=== PATIENT | male | born 1960 | race Caucasian/White ===

== ENCOUNTER 2019-06-08 15:24 | Outpatient (RCR) | payer BC, OTHER ==
[~2019-06-08 15:24] MED LIST: ANTIBIOTIC PO; LISINOPRIL; TYLENOL PO
== END 2019-06-14 ==
LOC: OT 15:24
PROVIDERS: ATTEND Orthopaedic Surgery
DX: S46.011A Strain of muscle(s) and tendon(s) of the rotator cuff of right shoulder, initial encounter (principal)

== ENCOUNTER 2019-07-04 21:11 | Emergency (ER) | payer BC, OTHER ==
[~2019-07-04] VITALS: Ht 185.4 cm; Wt 88.5 kg
--- OUTSIDE RECORDS SUMMARY | 2019-07-04 21:15 | XMS REPORT ---
Author Author [facility] Address Unknown Phone Unavailable Care Team Providers Care Patrol Guard Name Role Phone OZZY MORENO Unavailable Unavailable ALEXUS, WILL Unavailable Unavailable ROYA RODRIGUEZ Unavailable Unavailable SHAUNA JAMES Unavailable Unavailable Payers Payer Name Policy Type Policy Number Effective Date Expiration Date Problems This patient has no known problems. Allergies, Adverse Reactions, Alerts Allergy Name Allergy Type Status Severity Reaction(s) Onset Date Inactive Date Treating Clinician Comments jacqui DA Active CT 2015-04-22 00:00:00 Medications This patient has no known medications. Results Test Description Test Time Test Comments Text Results Atomic Results Result Comments HEMOGLOBIN 2019-05-27 08:39:00 HEMOGLOBIN (BEAKER) (test eedm=966) 14.6 GM/DL 13.7-17.5 BASIC METABOLIC [id number] 08:39:00* Test Item Value Reference Range Comments SODIUM (BEAKER) (test gkzk=151) 141 meq/L 136-145 POTASSIUM (BEAKER) (test ttyf=357) 4.1 meq/L 3.5-5.1 CHLORIDE (BEAKER) (test beek=688) 106 meq/L 98-107 CO2 (BEAKER) (test pfqd=470) 30 meq/L 22-29 BLOOD UREA NITROGEN (BEAKER) (test mahu=598) 21 mg/dL 7-21 CREATININE (BEAKER) (test srsw=988) 0.74 mg/dL 0.57-1.25 GLUCOSE RANDOM (BEAKER) (test krdi=708) 96 mg/dL 70-105 CALCIUM (BEAKER) (test ulds=398) 8.7 mg/dL 8.4-10.2 EGFR (BEAKER) (test glzo=1395) 108 mL/min/1.73 sq m ESTIMATED GFR IS NOT ACCURATE CREATININE CLEARANCE IN PREDICTING GLOMERULAR FILTRATION RATE. ESTIMATED GFR IS NOT APPLICABLE FOR DIALYSIS PATIENTS. CT, [id number] 23:56:00Reason for exam:->ABDOMINAL PAINWhat is the patient's sedation requirement?->No SedationFINAL REPORT CT abdomen and pelvis, 03/26/2019 TECHNIQUE: Helical scanning of the abdomen and pelvis was performed following intravenous contrast only. This examination was performed according to departmental dose optimization protocol that includes automatic exposure control, adjustment of the MA and/or KV depending on patient size and/or iterative reconstruction technique. COMPARISON: 10/19/2018 The lung bases remain clear. No pleural or pericardial effusions are identified. The liver, spleen, pancreas and adrenals appear normal. There is a stable 12 mm cyst in the lower pole of the left kidney and an 8 mm stable probable cyst in the right kidney.There is no significant distention gastrointestinal tract. The retroperitoneal lymph nodes noted on the previous study are unchanged and not enlarged by size criteria. Abdominal aorta is not enlarged. There is a lucent approximately 10 mm lesion right iliac bone near the SI joint remains unchanged. This is nonspecific and could be of normal. There are a few scattered areas of increased bony sclerosis in the lumbar spine as well as in the iliac bones that are likely degenerative and/or bone islands. These lesions are unchanged from the prior study. New lesions are seen. Degenerative changes are noted in the lumbar spine at multiple levels. CONCLUSION: Signed: Lela James MDRepthe rehabilitation institute Verified Date/Time: 03/26/2019 23:56:37 Reading Location: [facility] [id number] Consult Reading Room /[id number] 23:24:00* Test Item Value Reference Range Comments PROTIME (BEAKER) (test iwhh=475) 11.4 sec 9.3-12.0 INR (BEAKER) (test jnyw=580) 1.1 <=5.9 PARTIAL THROMBOPLASTIN TIME (BEAKER) (test gifs=402) 28.6 sec 23.0-35.0 RECOMMENDED COUMADIN/WARFARIN INR THERAPY RANGESSTANDARD DOSE: 2.0 - 3.0 Inclu halle: PROPHYLAXIS for venous thrombosis, systemic embolization; TREATMENT for callum ous thrombosis and/or pulmonary embolus.HIGH RISK: Target INR is 2.5-3.5 for pat ients with mechanical heart valves.Final Information (Auto Output)Final Informat ion (Auto Output)Final Information (Auto Output)COMPREHENSIVE METABOLIC PANEL 2019-03-26 23:09:00* Test Item Value Reference Range Comments TOTAL PROTEIN (BEAKER) (test yxcg=086) 7.2 gm/dL 6.0-8.5 ALBUMIN (BEAKER) (test zyhb=4573) 4.2 g/dL 3.5-5.0 ALKALINE PHOSPHATASE (BEAKER) (test tnzj=496) 81 U/L 30-115 BILIRUBIN TOTAL (BEAKER) (test yqsi=904) 0.5 mg/dL 0.1-1.2 SODIUM (BEAKER) (test swtk=626) 138 meq/L 135-148 POTASSIUM (BEAKER) (test hous=475) 3.9 meq/L 3.6-5.5 CHLORIDE (BEAKER) (test uxuo=165) 99 meq/L 98-106 CO2 (BEAKER) (test nhgd=177) 28 meq/L 20-29 BLOOD UREA NITROGEN (BEAKER) (test hupc=668) 47 mg/dL 10-26 CREATININE (BEAKER) (test ogoc=667) 1.14 mg/dL 0.50-1.20 GLUCOSE RANDOM (BEAKER) (test cxuz=939) 106 mg/dL 70-110 CALCIUM (BEAKER) (test opuq=453) 9.5 mg/dL 8.5-10.5 AST (SGOT) (BEAKER) (test iyfm=213) 33 U/L 5-40 ALT (SGPT) (BEAKER) (test ruwh=483) 31 U/L 5-50 EGFR (BEAKER) (test eliw=1362) 66 mL/min/1.73 sq m ESTIMATED GFR IS NOT ACCURATE CREATININE CLEARANCE IN PREDICTING GLOMERULAR FILTRATION RATE. ESTIMATED GFR IS NOT APPLICABLE FOR DIALYSIS PATIENTS. [id number] 23:07:00* Test Item Value Reference Range Comments LIPASE (BEAKER) (test bzna=168) 32 U/L 6-51 CBC W/PLT COUNT & AUTO [id number] 22:49:00* Test Item Value Reference Range Comments WHITE BLOOD CELL COUNT (BEAKER) (test obvg=551) 11.2 K/ L 4.0-10.0 RED BLOOD CELL COUNT (BEAKER) (test sjtm=782) 5.29 M/ L 4.20-5.80 HEMOGLOBIN (BEAKER) (test ssos=627) 15.7 GM/DL 13.0-16.8 HEMATOCRIT (BEAKER) (test cpyv=392) 47.4 % 36.0-50.0 MEAN CORPUSCULAR VOLUME (BEAKER) (test qldq=135) 89.6 fL 82.0-99.0 MEAN CORPUSCULAR HEMOGLOBIN (BEAKER) (test irvw=749) 29.7 pg 27.0-33.0 MEAN CORPUSCULAR HEMOGLOBIN CONC (BEAKER) (test humb=738) 33.1 GM/DL 32.0-36.0 RED CELL DISTRIBUTION WIDTH (BEAKER) (test rwul=501) 13.2 % 12.0-15.0 PLATELET COUNT (BEAKER) (test cerf=585) 165 K/CU MM 150-430 MEAN PLATELET VOLUME (BEAKER) (test yypw=528) 11.2 fL 6.0-11.5 NUCLEATED RED BLOOD CELLS (BEAKER) (test jcln=296) 0 /100 WBC 0-0 NEUTROPHILS RELATIVE PERCENT (BEAKER) (test illu=329) 51 % LYMPHOCYTES RELATIVE PERCENT (BEAKER) (test kqjg=216) 34 % MONOCYTES RELATIVE PERCENT (BEAKER) (test hdvc=220) 10 % EOSINOPHILS RELATIVE PERCENT (BEAKER) (test oetv=137) 4 % BASOPHILS RELATIVE PERCENT (BEAKER) (test xgha=374) 0 % NEUTROPHILS ABSOLUTE COUNT (BEAKER) (test hmwj=654) 5.70 K/ L 1.80-8.00 LYMPHOCYTES ABSOLUTE COUNT (BEAKER) (test syei=767) 3.76 K/ L 1.48-4.50 MONOCYTES ABSOLUTE COUNT (BEAKER) (test kgix=989) 1.16 K/ L 0.00-1.30 EOSINOPHILS ABSOLUTE COUNT (BEAKER) (test qdzl=557) 0.47 K/ L 0.00-0.50 BASOPHILS ABSOLUTE COUNT (BEAKER) (test wqsg=852) 0.05 K/ L 0.00-0.20 IMMATURE GRANULOCYTES-RELATIVE PERCENT (BEAKER) (test blzp=8862) 0 % 0-0 URINALYSIS W/ [id number] 22:06:00* Test Item Value Reference Range Comments COLOR (BEAKER) (test jcfg=994) Yellow CLARITY (BEAKER) (test urnx=113) Slightly Cloudy SPECIFIC GRAVITY UA (BEAKER) (test ddfo=676) 1.025 1.001-1.035 PH UA (BEAKER) (test atqv=731) 6.0 5.0-8.0 PROTEIN UA (BEAKER) (test sabe=788) Trace Negative GLUCOSE UA (BEAKER) (test sjvk=881) Negative Negative KETONES UA (BEAKER) (test pvnl=804) Negative Negative BILIRUBIN UA (BEAKER) (test znme=222) Negative Negative BLOOD UA (BEAKER) (test bkra=808) Trace Negative NITRITE UA (BEAKER) (test gqnb=018) Negative Negative LEUKOCYTE ESTERASE UA (BEAKER) (test imtp=089) Negative Negative UROBILINOGEN UA (BEAKER) (test gcli=620) 0.2 mg/dL 0.2-1.0 BACTERIA (BEAKER) (test jyyl=698) Occasional RBC UA-MANUAL (BEAKER) (test hsqk=0383) <5 /HPF WBC UA-MANUAL (BEAKER) (test xewf=6328) 10-20 /HPF SQUAMOUS EPITHELIAL MANUAL (BEAKER) (test aupe=7658) <5 /HPF SOURCE(BEAKER) (test oudg=1770) URINE [id number] 09:42:00* Test Item Value Reference Range Comments CULTURE (BEAKER) (test ixou=9144) No growth URINALYSIS W/ [id number] 10:10:00* Test Item Value Reference Range Comments COLOR (BEAKER) (test goeh=896) [place] CLARITY (BEAKER) (test fgll=281) Hazy SPECIFIC GRAVITY UA (BEAKER) (test yhdc=181) 1.020 1.001-1.035 PH UA (BEAKER) (test rejr=517) 6.5 5.0-8.0 PROTEIN UA (BEAKER) (test iaqa=155) 100 mg/dL Negative GLUCOSE UA (BEAKER) (test rifj=949) 100 mg/dL Negative KETONES UA (BEAKER) (test qibw=973) Trace Negative BILIRUBIN UA (BEAKER) (test gnkb=412) Positive Negative BLOOD UA (BEAKER) (test cgsq=308) Trace Negative NITRITE UA (BEAKER) (test qckz=029) Positive Negative LEUKOCYTE ESTERASE UA (BEAKER) (test msof=005) Small Negative UROBILINOGEN UA (BEAKER) (test nblv=072) 4.0 mg/dL 0.2-1.0 BACTERIA (BEAKER) (test ndsw=669) Moderate RBC UA-MANUAL (BEAKER) (test jmin=1309) 5-10 /HPF WBC UA-MANUAL (BEAKER) (test nbsk=7357) 20-50 /HPF SQUAMOUS EPITHELIAL MANUAL (BEAKER) (test mcuk=5850) 5-10 /HPF SOURCE(BEAKER) (test jmyr=0769) Urine Chem. (Dipstick) result might be inaccurate due to color interference of t he urine specimen.BASIC METABOLIC [id number] 09:58:00* Test Item Value Reference Range Comments SODIUM (BEAKER) (test dugs=244) 137 meq/L 135-148 POTASSIUM (BEAKER) (test vrsc=086) 4.1 meq/L 3.6-5.5 CHLORIDE (BEAKER) (test fabc=294) 102 meq/L 98-106 CO2 (BEAKER) (test gvtw=679) 26 meq/L 20-29 BLOOD UREA NITROGEN (BEAKER) (test qvci=396) 29 mg/dL 10-26 CREATININE (BEAKER) (test ebkn=966) 0.95 mg/dL 0.50-1.20 GLUCOSE RANDOM (BEAKER) (test dmug=088) 97 mg/dL 70-110 CALCIUM (BEAKER) (test phhs=569) 10.1 mg/dL 8.5-10.5 EGFR (BEAKER) (test cmet=0185) 81 mL/min/1.73 sq m ESTIMATED GFR IS NOT ACCURATE CREATININE CLEARANCE IN PREDICTING GLOMERULAR FILTRATION RATE. ESTIMATED GFR IS NOT APPLICABLE FOR DIALYSIS PATIENTS. CBC W/PLT COUNT & AUTO [id number] 09:50:00* Test Item Value Reference Range Comments WHITE BLOOD CELL COUNT (BEAKER) (test zdoz=381) 13.8 K/ L 4.0-10.0 RED BLOOD CELL COUNT (BEAKER) (test kyfu=770) 5.14 M/ L 4.20-5.80 HEMOGLOBIN (BEAKER) (test tnkn=724) 15.5 GM/DL 13.0-16.8 HEMATOCRIT (BEAKER) (test ycut=729) 46.7 % 36.0-50.0 MEAN CORPUSCULAR VOLUME (BEAKER) (test wkde=060) 90.9 fL 82.0-99.0 MEAN CORPUSCULAR HEMOGLOBIN (BEAKER) (test efmi=469) 30.2 pg 27.0-33.0 MEAN CORPUSCULAR HEMOGLOBIN CONC (BEAKER) (test thtj=139) 33.2 GM/DL 32.0-36.0 RED CELL DISTRIBUTION WIDTH (BEAKER) (test uehf=993) 12.9 % 12.0-15.0 PLATELET COUNT (BEAKER) (test vuxj=058) 183 K/CU MM 150-430 MEAN PLATELET VOLUME (BEAKER) (test yjmf=249) 11.5 fL 6.0-11.5 NUCLEATED RED BLOOD CELLS (BEAKER) (test rpck=012) 0 /100 WBC 0-0 NEUTROPHILS RELATIVE PERCENT (BEAKER) (test wwvk=917) 69 % LYMPHOCYTES RELATIVE PERCENT (BEAKER) (test yiec=812) 19 % MONOCYTES RELATIVE PERCENT (BEAKER) (test znlu=108) 10 % EOSINOPHILS RELATIVE PERCENT (BEAKER) (test bdca=289) 1 % BASOPHILS RELATIVE PERCENT (BEAKER) (test odcb=065) 0 % NEUTROPHILS ABSOLUTE COUNT (BEAKER) (test wjvr=608) 9.60 K/ L 1.80-8.00 LYMPHOCYTES ABSOLUTE COUNT (BEAKER) (test vvxa=317) 2.60 K/ L 1.48-4.50 MONOCYTES ABSOLUTE COUNT (BEAKER) (test vycw=688) 1.32 K/ L 0.00-1.30 EOSINOPHILS ABSOLUTE COUNT (BEAKER) (test tucr=116) 0.19 K/ L 0.00-0.50 BASOPHILS ABSOLUTE COUNT (BEAKER) (test mrze=663) 0.06 K/ L 0.00-0.20 IMMATURE GRANULOCYTES-RELATIVE PERCENT (BEAKER) (test lesq=0674) 0 % 0-0 FL, CYSTOGRAM, [id number] 11:45:00Reason for Exam:->Z90.79FINAL REPORT PROCEDURE: Static cystogram DISCUSSION: Patient arrived in the department with a Gibbs catheter in place. Approximately 325 cc of Cystografin water-soluble contrast was instilled in a retrograde fashion and multiple images obtained during early filling, at complete distention of the bladder, and post voiding. There are no filling defects, mucosal irregularities, or other abnormalities appreciated in the bladder. No evidence of reflux bilate rally. No contrast extravasation. A small amount of post void residual is presen t. Total fluoroscopy time: 1.3minutes. Estimated dose reported as ( Ka, r): 82 mGy IMPRESSION: 1. Unremarkable static cystogram without evidence of bladder negra k or injury. Signed: Alvaro Davis MDReport Verified Date/Time: 01/28/2019 11:45: 42 Reading Location: [facility] Radiology Reading Room UE [id number] 18:21:00Surgical Pathology Report Case: [id number] Authorizing Provider: Hugo James, Collected: 01/18/2019 1244 Ordering Location: [facility] PERIOPERATIVE Received: 01/19/2019 0756 SERVICES Pathologist: Jeremy Cruz MD Specimens: A) - Lymph Node, Vidhi prostatatic Lymph Node B) - Lymph Node, Pelvic, Right, Right Pelvic Lymph Node C) - Lymph Node, Pelvic, Left, Left Pelvic Lymph Node D) - Soft Tissue, Other, Bladder Margin E) - Prostate A. LYMPH NODE, PERIPROST ATIC, DISSECTION: - FIBROADIPOSE TISSUE, NEGATIVE FOR LYMPHOID TISSUE AND TUMO RB. LYMPH NODE, RIGHT PELVIC, DISSECTION: - ONE LYMPH NODE, NEGATIVE FOR TUMOR (0/1)C. LYMPH NODE, LEFT PELVIC, DISSECTION: - THREE LYMPH NODES, NEGATIVE FOR TUMOR (0/3)D. BLADDER MARGIN, BIOPSY: - UROTHELIAL MUCOSA, NEGATIVE FOR TUMO RE. 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 There is a smaller focus on tumor in the right peripheral zone in the apical third of the prostate. All tumors are confined to the prostate and t he surgical margins are negative. Excellent preservation of the neurovascular b undles is noted from examination of the surgical specimen. PROSTATE GLAND: Radi guero Prostatectomy (Prostate Res - All Specimens)SPECIMEN Procedure: Radica l prostatectomy TUMOR Histologic Type: Acinar adenocarcinoma Histologic Grade: [place] Pattern: Percentage of Pattern 4: 15 % Percentage of Pattern 5: 0 % Primary Estela Pattern: Pattern 3 Secondary [place] Pattern: Pattern 4 Tertiary [place] Pattern: Not applicable Total Estela Score: 7 Grade Group: 2 Intr aductal Carcinoma (IDC): Not identified Tumor Extent: Tumor Quanti tation: Estimated percentage of prostate involved by tumor: 30 % Extrapro static Extension (EPE): Not identified Urinary Bladder Neck Invasion: Not identified Seminal Vesicle Invasion: Not identified Accessory Fi ndings: Treatment Effect: No known presurgical therapy Lymphovas cular Invasion: Not Identified Perineural Invasion: Not identified MA RGINS Margins: Uninvolved by invasive carcinoma : Benign prostate g lands present at surgical margin LYMPH NODES Number of Lymph Nodes Involved: 0 Number of Lymph Nodes Examined: 4 PATHOLOGIC STAGE CLASSIFICATION (pTN M, AJCC 8th Edition) TNM Descriptors: Not applicable Primary Tumor (pT): pT2 Regional Lymph Nodes (pN): pN0 Distant Metastasis (pM): Not applicable - pM cannot be determined from the submitted specimen(s) ADDITIONAL F INDINGS Additional Pathologic Findings: High-grade prostatic intraepithelia l neoplasia (PIN) Additional Pathologic Findings: Nodular prostatic hyperp lasia 69210 x2; 07207; 26485 [id number] cancerA. Lymph node, periprostatic; B. R ight pelvic lymph node; C. Left pelvic lymph node; D. Bladder margin; E. Prostat e Specimen A is received in fixative and designated as "lymph node" and consists of yellow-rodriguez fibroadipose tissue (4.5 x 2.0 x 1.0 cm). No obvious hope tissue is identified. The specimen is entirely submitted into A1 to A3. Specimen B is received in fixative and designated as "right pelvic lymph node" and consists of multiple fibroadipose tissue fragments measuring 4.5 x 4.0 x 1.0 cm in aggrega te. Two possible lymph nodes are identified ranging in size from 1.5 to 4.0 cm i n greatest dimension. Section code: B1, one possible lymph node; B2 through B3, one possible lymph node serially sectioned; B4 to B5, remainder of the specimen. Specimen C is received in fixative and designated as "lymph node, pelvic left" and consists of multiple fragments of fibroadipose tissue measuring 3.8 x 3.0 x 1.0 cm in aggregate. One possible lymph node is identified measuring 2.5 x 1.1 x 0.6 cm. Section code: C1, one possible lymph node bisected; C2 to C3, remainder of the specimen, entirely submitted. Specimen D is received in fixative and d esignated as "soft tissue other" and consists of two minute brown-rodriguez tissue fra gments ranging in size from 0.2 to 0.5 cm in greatest dimension. Both tissue fra gments are submitted into D1. MG/pl Specimen E. Received is a radical prostate ctomy specimen in formalin with the patient's name (Dion Stewart, is a p rostate with right side seminal vesicles and vas deferentia with the left side v as deferentia missing.The prostate weighs 50 gm and measures 3.8 cm apex to base , 3.8 cm transversely and 3.4 cm anterior to posterior. The right seminal vesicl e measures 2.5 x 1.5 x 1.0 cm, and the left side seminal vesicle measures 1.0 x 1.0 x 0.5 cm respectively. The right vasa deferentia measure 5.0 x 0.5 cm, and t he left vas deferentia is not present. The capsular surface of the prostate is p urple-rodriguez to red, dusky, and focally ragged. Ink code: Right-black, left-blue. T he prostate is serially sectioned from apex to base in entirety. The total numbe r of slices including seminal vesicles and vas deferentia are 12.The sectioning of the prostate reveals pink-rodriguez to mayorga-white, homogeneous, focally nodular pro static parenchyma throughout. No discrete masses are identified. The sectioning of the seminal vesicle reveals a pink-rodriguez unremarkable cut surface. Section code : Apical margins are submitted in cassette E1, bladder neck margins are submitte d in cassette E2. The prostate slices are submitted in cassette E3 through E10. The right and left seminal vesicles at the base of the prostate are submitted in cassette E11, seminal vesicle tips are submitted in cassette E12. SDH/Janie-E: Pe rformed [facility], Department of Pathology, [address] [place], [place] [address], [facility], [address] [place] [address], Tel [facility] [place], [facility], [address] [place] [address], [facility] of [facility], [address] [place] [address], Tel [facility], Department of Pathology, [address] [place] [address], WPQANNOLIHKYN METABOLIC [id number] 16:42:00* Test Item Value Reference Range Comments TOTAL PROTEIN (BEAKER) (test kijk=961) 5.8 gm/dL 6.0-8.5 ALBUMIN (BEAKER) (test xtri=6679) 3.4 g/dL 3.5-5.0 ALKALINE PHOSPHATASE (BEAKER) (test usva=895) 56 U/L 30-115 BILIRUBIN TOTAL (BEAKER) (test uluh=333) 0.6 mg/dL 0.1-1.2 SODIUM (BEAKER) (test fddi=837) 134 meq/L 135-148 POTASSIUM (BEAKER) (test lbpk=761) 4.0 meq/L 3.6-5.5 CHLORIDE (BEAKER) (test mdrr=319) 102 meq/L 98-106 CO2 (BEAKER) (test ifzp=594) 26 meq/L 20-29 BLOOD UREA NITROGEN (BEAKER) (test peid=748) 12 mg/dL 10-26 CREATININE (BEAKER) (test dnji=510) 0.71 mg/dL 0.50-1.20 GLUCOSE RANDOM (BEAKER) (test kiqq=610) 101 mg/dL 70-110 CALCIUM (BEAKER) (test orgm=108) 8.8 mg/dL 8.5-10.5 AST (SGOT) (BEAKER) (test wlir=709) 19 U/L 5-40 ALT (SGPT) (BEAKER) (test nmnp=632) 15 U/L 5-50 EGFR (BEAKER) (test iexs=4587) 114 mL/min/1.73 sq m ESTIMATED GFR IS NOT ACCURATE CREATININE CLEARANCE IN PREDICTING GLOMERULAR FILTRATION RATE. ESTIMATED GFR IS NOT APPLICABLE FOR DIALYSIS PATIENTS. POCT-GLUCOSE [id number] 16:38:00* Test Item Value Reference Range Comments POC-GLUCOSE METER (BEAKER) (test afdl=5265) 107 mg/dL 70-110 TESTED AT [address] [address] [id number] 16:33:00* Test Item Value Reference Range Comments MAGNESIUM (BEAKER) (test jitu=416) 1.7 mg/dL 1.5-3.0 CBC W/PLT COUNT & AUTO [id number] 16:19:00* Test Item Value Reference Range Comments WHITE BLOOD CELL COUNT (BEAKER) (test qhro=682) 13.0 K/ L 4.0-10.0 RED BLOOD CELL COUNT (BEAKER) (test gllr=190) 4.23 M/ L 4.20-5.80 HEMOGLOBIN (BEAKER) (test altl=952) 12.7 GM/DL 13.0-16.8 HEMATOCRIT (BEAKER) (test ehgo=887) 38.6 % 36.0-50.0 MEAN CORPUSCULAR VOLUME (BEAKER) (test zvpq=459) 91.3 fL 82.0-99.0 MEAN CORPUSCULAR HEMOGLOBIN (BEAKER) (test jnot=155) 30.0 pg 27.0-33.0 MEAN CORPUSCULAR HEMOGLOBIN CONC (BEAKER) (test yxck=639) 32.9 GM/DL 32.0-36.0 RED CELL DISTRIBUTION WIDTH (BEAKER) (test rywm=136) 13.1 % 12.0-15.0 PLATELET COUNT (BEAKER) (test zekm=254) 149 K/CU MM 150-430 MEAN PLATELET VOLUME (BEAKER) (test yvdj=793) 11.1 fL 6.0-11.5 NUCLEATED RED BLOOD CELLS (BEAKER) (test asxz=819) 0 /100 WBC 0-0 NEUTROPHILS RELATIVE PERCENT (BEAKER) (test nwpy=519) 64 % LYMPHOCYTES RELATIVE PERCENT (BEAKER) (test oihe=509) 23 % MONOCYTES RELATIVE PERCENT (BEAKER) (test gmxi=304) 10 % EOSINOPHILS RELATIVE PERCENT (BEAKER) (test omfx=424) 2 % BASOPHILS RELATIVE PERCENT (BEAKER) (test vftd=698) 0 % NEUTROPHILS ABSOLUTE COUNT (BEAKER) (test tifz=247) 8.32 K/ L 1.80-8.00 LYMPHOCYTES ABSOLUTE COUNT (BEAKER) (test pmcq=914) 3.03 K/ L 1.48-4.50 MONOCYTES ABSOLUTE COUNT (BEAKER) (test akhr=445) 1.28 K/ L 0.00-1.30 EOSINOPHILS ABSOLUTE COUNT (BEAKER) (test dncj=654) 0.29 K/ L 0.00-0.50 BASOPHILS ABSOLUTE COUNT (BEAKER) (test jpsg=727) 0.05 K/ L 0.00-0.20 IMMATURE GRANULOCYTES-RELATIVE PERCENT (BEAKER) (test myzv=7731) 0 % 0-0 POCT-GLUCOSE [id number] 13:10:00* Test Item Value Reference Range Comments POC-GLUCOSE METER (BEAKER) (test ypuh=5070) 130 mg/dL 70-110 TESTED AT [address] [address] HEMOGLOBIN AND [id number] 08:51:00* Test Item Value Reference Range Comments HEMOGLOBIN (BEAKER) (test jasj=021) 12.8 GM/DL 13.0-16.8 HEMATOCRIT (BEAKER) (test hqjr=945) 38.7 % 36.0-50.0 POCT-GLUCOSE [id number] 22:00:00* Test Item Value Reference Range Comments POC-GLUCOSE METER (BEAKER) (test oknp=7004) 138 mg/dL 70-110 TESTED AT [address] [address] POCT-GLUCOSE [id number] 20:46:00* Test Item Value Reference Range Comments POC-GLUCOSE METER (BEAKER) (test zyme=8708) 179 mg/dL 70-110 TESTED AT [address] [address] POCT-GLUCOSE [id number] 17:28:00* Test Item Value Reference Range Comments POC-GLUCOSE METER (BEAKER) (test qafu=3109) 128 mg/dL 70-110 TESTED AT [address] [address] BASIC METABOLIC [id number] 16:47:00* Test Item Value Reference Range Comments SODIUM (BEAKER) (test dxey=400) 138 meq/L 135-148 POTASSIUM (BEAKER) (test zbvh=166) 3.9 meq/L 3.6-5.5 CHLORIDE (BEAKER) (test wcpq=416) 100 meq/L 98-106 CO2 (BEAKER) (test antv=670) 30 meq/L 20-29 BLOOD UREA NITROGEN (BEAKER) (test kcfe=938) 11 mg/dL 10-26 CREATININE (BEAKER) (test vyvr=632) 0.82 mg/dL 0.50-1.20 GLUCOSE RANDOM (BEAKER) (test invs=387) 108 mg/dL 70-110 CALCIUM (BEAKER) (test rrdx=103) 9.0 mg/dL 8.5-10.5 EGFR (BEAKER) (test eymm=0293) 96 mL/min/1.73 sq m ESTIMATED GFR IS NOT ACCURATE CREATININE CLEARANCE IN PREDICTING GLOMERULAR FILTRATION RATE. ESTIMATED GFR IS NOT APPLICABLE FOR DIALYSIS PATIENTS. POCT-GLUCOSE [id number] 07:48:00* Test Item Value Reference Range Comments POC-GLUCOSE METER (BEAKER) (test wdsf=6572) 148 mg/dL 70-110 TESTED AT [address] [address] BASIC METABOLIC [id number] 07:27:00* Test Item Value Reference Range Comments SODIUM (BEAKER) (test fqgl=493) 131 meq/L 135-148 POTASSIUM (BEAKER) (test prqe=388) 6.2 meq/L 3.6-5.5 CHLORIDE (BEAKER) (test znsv=886) 101 meq/L 98-106 CO2 (BEAKER) (test basz=238) 24 meq/L 20-29 BLOOD UREA NITROGEN (BEAKER) (test ladk=539) 12 mg/dL 10-26 CREATININE (BEAKER) (test mekl=933) 0.87 mg/dL 0.50-1.20 GLUCOSE RANDOM (BEAKER) (test hcri=158) 596 mg/dL 70-110 CALCIUM (BEAKER) (test fkae=411) 7.8 mg/dL 8.5-10.5 EGFR (BEAKER) (test cmhf=4785) 90 mL/min/1.73 sq m ESTIMATED GFR IS NOT ACCURATE CREATININE CLEARANCE IN PREDICTING GLOMERULAR FILTRATION RATE. ESTIMATED GFR IS NOT APPLICABLE FOR DIALYSIS PATIENTS. Before arterial line is discontinuedHEMOGLOBIN AND [id number] 06:55:00 * Test Item Value Reference Range Comments HEMOGLOBIN (BEAKER) (test pujq=105) 12.3 GM/DL 13.0-16.8 HEMATOCRIT (BEAKER) (test xgse=688) 38.1 % 36.0-50.0 BASIC METABOLIC [id number] 16:42:00* Test Item Value Reference Range Comments SODIUM (BEAKER) (test zabn=575) 139 meq/L 135-148 POTASSIUM (BEAKER) (test mqai=799) 3.6 meq/L 3.6-5.5 CHLORIDE (BEAKER) (test bjhh=946) 103 meq/L 98-106 CO2 (BEAKER) (test vmxv=948) 27 meq/L 20-29 BLOOD UREA NITROGEN (BEAKER) (test hivw=845) 15 mg/dL 10-26 CREATININE (BEAKER) (test zajz=570) 0.91 mg/dL 0.50-1.20 GLUCOSE RANDOM (BEAKER) (test wosl=185) 163 mg/dL 70-110 CALCIUM (BEAKER) (test yjqa=382) 8.8 mg/dL 8.5-10.5 EGFR (BEAKER) (test qwnv=9884) 86 mL/min/1.73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
--- OUTSIDE RECORDS SUMMARY | 2019-07-04 21:15 | XMS REPORT | Summary of Care ---
Author Author [facility] Organization [facility] Address Unknown Phone Unavailable Care Team Providers Care Fine Grader Name Role Phone Romie Cole MD PCP Reason for Visit * Reason Comments Post-op Follow-up 5 days s/p Right CTR, right thumb/small finger trigger releases w/local flexor synovectomies Encounter Details Care Team Description Date Type Department Jeremy Quiñones III, MD [address] [place], [place] [id number] Post-op Follow-up (5 days s/p Right CTR, right thumb/small finger trigger releases w/local flexor synovectomies ) 06/02/2019 Office Visit [facility] Orthopedic Surgery [address] [facility], [place] [address] Allergies Comments Active Allergy Reactions Severity Noted Date Codeine Nausea And 10/08/2018 Vomiting documented as of this encounter (statuses as of 06/02/2019) Medications End Date Status Medication Sig Dispensed Refills Start Date 11/12/2019 Active atorvastatin (LIPITOR) 20 Take 20 mg by 0 MG tablet mouth daily. 9 Active levofloxacin (LEVAQUIN) Take 500 mg 0 500 MG tablet by mouth. 11/19/2019 Active losartan-hydrochlorothiaz Take 1 Tab by 0 filippo (HYZAAR) 100-25 MG mouth daily. 9 per tablet Active tadalafil (CIALIS) 5 MG Take 5 mg by 0 tablet mouth. Active amoxicillin-clavulanate 0 (AUGMENTIN) 875-125 MG 9 per tablet Active meloxicam (MOBIC) 15 MG 0 tablet 9 Active phenazopyridine 0 (PYRIDIUM) 100 MG tablet 9 11/19/2019 Active losartan-hydrochlorothiaz Take 1 Tab by 0 filippo (HYZAAR) 100-25 MG mouth. 9 per tablet 06/02/2019 Discontinued hydrocodone-acetaminophen Take 5-325 0 (NORCO) 5-325 mg tablet Tabs by mouth 9 as needed. 06/02/2019 Discontinued losartan-hydrochlorothiaz 0 filippo (HYZAAR) 100-25 MG 9 per tablet 06/02/2019 Discontinued ondansetron (ZOFRAN-ODT) Take 4 mg by 0 4 mg disintegrating mouth. 9 tablet 06/02/2019 Discontinued promethazine (PHENERGAN) 0 25 MG tablet 9 06/02/2019 Discontinued atorvastatin (LIPITOR) 20 Take 20 mg by 0 MG tablet mouth. 9 06/02/2019 Discontinued tramadol (ULTRAM) 50 MG Take 1 tablet 20 Tab 0 tablet by mouth 9 every 6 hours as needed for pain documented as of this encounter (statuses as of 06/02/2019) Active Problems No known active problemsdocumented as of this encounter (statuses as of 06/02/2019) Social History Date Tobacco Use Types Packs/Day Years Used Never Smoker Smokeless Tobacco: Never Used Drinks/Week oz/Week Comments Alcohol Use Never Alcohol Habits Answer Date Recorded How often do you have a drink containing alcohol? Never 01/25/2019 How many drinks containing alcohol do you have on Not asked a typical day when you are drinking? How often do you have six or more drinks on one Not asked occasion? Sex Assigned at Date Recorded Not on file Industry Job Start Date Occupation Not on file Not on file Not on file Travel End Travel History Travel Start No recent travel history available. documented as of this encounter Last Filed Vital Signs Reading Time Taken Comments Vital Sign - - Blood Pressure - - Pulse - - Temperature - - Respiratory Rate - - Oxygen Saturation - - Inhaled Oxygen Concentration 99.8 kg (220 lb) 06/02/2019 9:12 AM CDT Weight 182.9 cm (6') 06/02/2019 9:12 AM CDT Height 29.84 06/02/2019 9:12 AM CDT Body Mass Index documented in this encounter Progress Notes * Jeremy Quiñones III, MD - 06/02/2019 9:20 AM CDT This patient is 6 days status post right carpal tunnel release as well as right thumb and small finger trigger releases. He has no complaints today. He has re turned to work. On physical examination, his motion is quite good and improved. He is very stif f fingers and his wounds are not yet fully healed. For that reason sutures were left in place. We discussed in detail activity restriction splint to use wound care and aspects related to his job. I explained that he needs to avoid any contamination at all times and minimize heavy use of the hand. I'll see him back in one week for s uture removal. documented in this encounter Plan of Treatment Health Maintenance Due Date Last Done Comments COLON CANCER SCREENIN1960 COLONOSCOPY TETANUS SHOT (ADULT) 1975 BMI FOLLOW UP PLAN 1978 HEPATITIS C SCREENING 1978 HIV SCREENING 1978 FLU VACCINE > 6 MONTHS 04/15/2019 documented as of this encounter Results Not on filedocumented in this encounter Visit Diagnoses Diagnosis Bilateral carpal tunnel syndrome - Primary Carpal tunnel syndrome documented in this encounter Insurance Type Payer Benefit Subscriber ID Effective Phone Address Plan / Dates Group [facility] xxxxxxxxxx 2018-P [facility] PLAN [facility] [address] [place] [address] documented as of this encounter
--- OUTSIDE RECORDS SUMMARY | 2019-07-04 21:15 | XMS REPORT | Summary of Care ---
Author Author [facility] Organization [facility] Address Unknown Phone Unavailable Care Team Providers Care Smart Grid Engineer Name Role Phone Romie Cole MD PCP Reason for Visit * Reason Comments Hand Injury * Consult, Test & Treat (Routine) Referred By Contact Referred To Contact Status Reason Specialty Diagnoses / Procedures Keven Murguia MD [address] [facility] [address], [place] [address] Jeremy Quiñones III, MD [address] [place] [address] Authorization Consult, Test, and Orthopedic Diagnoses Not Needed Treat Surgery Bilateral carpal tunnel syndrome P rocedures [place] OFFICE OUTPATIENT NEW 30 MINUTES Encounter Details Care Team Description Date Type Department Jeremy Quiñones III, MD [address] [place], [place] [id number] Hand Injury 04/19/2019 Office Visit Department of Orthopedic Surgery [address] [facility], [place] [address] Allergies Comments Active Allergy Reactions Severity Noted Date Codeine Nausea And 10/08/2018 Vomiting documented as of this encounter (statuses as of 04/19/2019) Medications End Date Status Medication Sig Dispensed Refills Start Date 11/12/2019 Active atorvastatin (LIPITOR) 20 Take 20 mg by 0 MG tablet mouth daily. 9 Active hydrocodone-acetaminophen Take 5-325 0 (NORCO) 5-325 mg tablet Tabs by mouth 9 as needed. Active levofloxacin (LEVAQUIN) Take 500 mg 0 500 MG tablet by mouth. 11/19/2019 Active losartan-hydrochlorothiaz Take 1 Tab by 0 filippo (HYZAAR) 100-25 MG mouth daily. 9 per tablet Active losartan-hydrochlorothiaz 0 filippo (HYZAAR) 100-25 MG 9 per tablet Active tadalafil (CIALIS) 5 MG Take 5 mg by 0 tablet mouth. Active amoxicillin-clavulanate 0 (AUGMENTIN) 875-125 MG 9 per tablet Active meloxicam (MOBIC) 15 MG 0 tablet 9 Active ondansetron (ZOFRAN-ODT) Take 4 mg by 0 4 mg disintegrating mouth. 9 tablet Active phenazopyridine 0 (PYRIDIUM) 100 MG tablet 9 Active promethazine (PHENERGAN) 0 25 MG tablet 9 11/12/2019 Active atorvastatin (LIPITOR) 20 Take 20 mg by 0 MG tablet mouth. 9 11/19/2019 Active losartan-hydrochlorothiaz Take 1 Tab by 0 filippo (HYZAAR) 100-25 MG mouth. 9 per tablet Active tramadol (ULTRAM) 50 MG Take 1 Tab by 15 Tab 0 tablet mouth every 6 9 hours as needed for Pain. 04/19/2019 Discontinued tramadol (ULTRAM) 50 MG 0 tablet 9 documented as of this encounter (statuses as of 04/19/2019) Active Problems Not on filedocumented as of this encounter (statuses as of 04/19/2019) Social History Date Tobacco Use Types Packs/Day [...] of this encounter Last Filed Vital Signs Not on filedocumented in this encounter Progress Notes * Jeremy Quiñones III, MD - 04/19/2019 10:10 AM CDT This patient is a 58-year-old right-hand dominant male who works on [employer] and complains of right hand numbness and pain. He also complains of clicking and locking involving the right small finger. He states that the right long and ring fingers are constantly numb but he experi ences exacerbating pain at night and with daily activities. He has a positive s may sign. He denies similar symptoms on the left side. 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 He has had symptoms for some time and is tried utilizin g splints but they provided minimal help. Symptoms have worsened over time. He also states that he sustained an injury to his right wrist years ago and has had some discomfort and restriction of motion ever since. He had EMGs and nerve c onduction studies performed in March of this year which are reviewed today. They do reveal moderate right greater than left carpal tunnel syndrome. The patient's medical history is remarkable for hypertension and prostate cancer . He underwent prostate surgery in January of this year and underwent a right total knee replacement in 2013. He is allergic to codeine. His review of systems is otherwise unremarkable on all 10 systems. On physical examination, the patient exhibits good cervical spine motion in all directions without radicular symptoms. He has full range of motion of all digit s except he does have clicking locking and pain with full flexion of his right s mall finger and he lacks 30 of right wrist extension compared with the contralat eral side. Right wrist flexion is mildly diminished as well. He has multiple c alluses consistent with heavy use of both hands. There is no evidence of Dupuyt cheyanne's disease. Sensation is diminished to light touch over the right long and r ing fingers but is intact elsewhere. Capillary refill is less than 2 seconds an d his skin is intact. He does have some well-healed transverse lacerations over the left volar forearm. He is tender over the A1 javier of the right small fin tristen with some nodularity and has less tenderness over the right thumb greater th an ring greater than long greater than index finger A1 pulleys. Carpal tunnel T inel's is positive on the right and negative on the left. The nerve compression testing is positive bilaterally. Tinel's testing at the elbow is negative bila terally. Intrinsic strength is 5 over 5 and thenar strength is also quite good at 5 minus over 5 on the right and 5 over 5 on the left. 3 views of the right wrist and hand performed today are all reviewed. There are some age-related arthritic changes. There is no clear evidence of significant deformity about the right wrist. Impression: Moderate right greater than left carpal tunnel syndrome, right small finger trigger digit Plan: We talked about the diagnoses and the appropriate treatment. I did offer a right carpal tunnel release with a right small finger A1 javier release and po ssible tendon slip resection. We also discussed the possibility of surgical rosalia atment or injection for the other digits, especially the thumb, on the right alberto d and that we would assess that in the preoperative holding area prior to surger y. We discussed the risks and benefits associated with surgery. He understands the risks include but are not limited to infection, nerve injury and numbness, scar tenderness, continued symptoms, and the need for further surgical procedure s, scar tenderness and stiffness. Despite these risks he wished to proceed with surgery which will take place soon. We also discussed today return to work and he was comfortable with the restrictions and recommendations. Surgical procedure: #1 right carpal tunnel release, #2 right small fingertrigger release with possible tendon slip resection Postoperative pain medications: Tramadol 15 tablets documented in this encounter Plan of Treatment Order Schedule Name Type Priority Associated Diagnoses Ordered: 04/19/2019 ORT - XR HAND RIGHT 3V ( [place] Charge Routine Right hand pain CHARGE ONLY) Health Maintenance Due Date Last Done Comments COLON CANCER SCREENIN1960 COLONOSCOPY TETANUS SHOT (ADULT) 1975 BMI FOLLOW UP PLAN 1978 HEPATITIS C SCREENING 1978 HIV SCREENING 1978 FLU VACCINE > 6 MONTHS 04/15/2019 documented as of this encounter Results * XR HAND RIGHT (COMPLETE) (04/19/2019 10:30 AM CDT) Specimen Narrative Performed At For result, please reference physician's note on the corresponding date. documented in this encounter Visit Diagnoses Diagnosis Bilateral carpal tunnel syndrome - Primary Carpal tunnel syndrome Right hand pain Pain in limb Trigger finger, acquired Trigger finger (acquired) documented in this encounter Insurance Type Payer Benefit Subscriber ID Effective Phone Address Plan / Dates Group [facility] xxxxxxxxxx 2018-P [facility] [place] [id number] - [place] [address] documented as of this encounter
--- OUTSIDE RECORDS SUMMARY | 2019-07-04 21:15 | XMS REPORT | Summary of Care ---
Author Author [facility] Organization [facility] Address Unknown Phone Unavailable Care Team Providers Care Pharmacy Resource Tech Name Role Phone Romie Cole MD PCP Reason for Visit * Reason Comments Post-op Follow-up 13 days status post right carpal tunnel release as well as right thumb and small finger trigger releases Encounter Details Care Team Description Date Type Department Jeremy Quiñones III, MD [address] [place] [address] Post-op Follow-up (13 days status post right carpal tunnel release as well as right thumb and small finger trigger releases) 06/09/2019 Office Visit [facility] Orthopedic Surgery [address] [facility]. [address], [place] [address] Allergies Comments Active Allergy Reactions Severity Noted Date Codeine Nausea And 10/08/2018 Vomiting documented as of this encounter (statuses as of 06/09/2019) Medications End Date Status Medication Sig Dispensed [...] 100-25 MG mouth. 9 per tablet Active sulfamethoxazole-trimetho Take 1 Tab by 14 Tab 0 prim (BACTRIM DS) 800-160 mouth two 9 MG per tablet times daily. Active tramadol (ULTRAM) 50 MG Take 1-2 25 Tab 0 tablet tablets by 9 mouth every 4-6 hours as needed documented as of this encounter (statuses as of 06/09/2019) Active Problems Problem Noted Date Trigger little finger of right hand 05/26/2019 Carpal tunnel syndrome of right wrist 05/26/2019 Prostate cancer (HCCode) 06/23/2018 Raised prostate specific antigen 05/12/2018 documented as of this encounter (statuses as of 06/09/2019) Social History Date Tobacco Use Types Packs/Day [...] Inhaled Oxygen Concentration 99.8 kg (220 lb) 06/09/2019 1:25 PM CDT Weight 182.9 cm (6') 06/09/2019 1:25 PM CDT Height 29.84 06/09/2019 1:25 PM CDT Body Mass Index documented in this encounter Progress Notes * Jeremy Quiñones III, MD - 06/09/2019 9:20 AM CDT This patient returns for suture removal. He has noted recurrent clicking involv ing the right small finger and seems to have some pain there as well. He is beg an putting Neosporin on his wounds. He states that he wears gloves when he work s and sweats excessively and feels that that is part of the issue. On physical examination, the sutures are still in place but very difficult to se e especially the most proximal suture in the carpal tunnel incision. All suture s were removed except that when could not be completely found. The patient did tolerate debridement of the wound and very detailed inspection. He did demonstr ate recurrent clicking involving the right small finger without obvious extensor tendon subluxation. Around the carpal tunnel incision there was a small bit of pus related to the retained suture. That was drained as well. The wounds were painted with Betadine and covered with Band-Aids. We talked extensively about wound care and activity modification. He requested some additional tramadol and he was also placed on Bactrim DS 1 by mouth twice a day 7 days. He was given 10 tramadol tablets. I will see him back in 2 weeks or sooner if his wounds do not continue to improve. He did begin seeing wil sifuentes documented in this encounter Plan of Treatment Care Team Description Date Type Specialty Jeremy Quiñones III, MD [address] [facility] [address] [place] [address] [phone] 06/23/2019 Office Visit Orthopedic Surgery Health Maintenance Due Date Last Done Comments COLON CANCER SCREENIN1960 COLONOSCOPY TETANUS SHOT (ADULT) 1975 BMI FOLLOW UP PLAN 1978 HEPATITIS C SCREENING 1978 HIV SCREENING 1978 FLU VACCINE > 6 MONTHS 04/15/2019 documented as of this encounter Results Not on filedocumented in this encounter Visit Diagnoses Diagnosis S/P carpal tunnel release - Primary Other postprocedural status documented in this encounter Insurance Type Payer Benefit Subscriber ID Effective Phone Address Plan / Dates Group [facility] [employer] [facility] xxxxxxxxxx 2018-P [address] [place] [address] PL[address] [facility] resent [id number] - [place] [address] documented as of this encounter
[2019-07-04 21:48] LABS: BASOPHILS # (AUTO) 0.1 (0.0-0.1); BASOPHILS % 0.5 % (0.0-1.0); EOSINOPHILS # (AUTO) 0.1 (0.0-0.4); EOSINOPHILS % 0.9 % (0.0-6.0); HEMATOCRIT 47.1 % (38.2-49.6); HEMOGLOBIN 15.5 g/dL (14.0-18.0); LYMPHOCYTES # (AUTO) 2.7 (1.0-3.2); LYMPHOCYTES % 21.1 % (18.0-39.1); MEAN CORPUSCULAR HEMOGLOBIN 29.6 pg (28-32); MEAN CORPUSCULAR HGB CONC 32.9 g/dL (31-35); MEAN CORPUSCULAR VOLUME 89.9 fL (81-99); MONOCYTES # (AUTO) 1.1 (0.2-0.8); MONOCYTES % 8.3 % (4.4-11.3); NEUTROPHILS # (AUTO) 8.9 (2.1-6.9); NEUTROPHILS % 68.7 % (38.7-80.0); PLATELET COUNT 165 x10e3/uL (140-360); RED BLOOD COUNT 5.24 x10e6/uL (4.3-5.7); RED CELL DISTRIBUTION WIDTH 13.5 % (11.7-14.4)
[2019-07-04 21:58] LABS: BILIRUBIN,URINE SMALL (NEGATIVE); CLARITY,URINE CLEAR (CLEAR); COLOR,URINE YELLOW (YELLOW); KETONES,URINE NEGATIVE (NEGATIVE); LEUKOCYTE ESTERASE ,URINE NEGATIVE (NEGATIVE); NITRITE,URINE NEGATIVE (NEGATIVE); PROTEIN,URINE DIPSTICK NEGATIVE (NEGATIVE); URINE UROBILINOGEN 1 mg/dL (0.2 - 1)
[2019-07-04 22:06] LABS: BACTERIA,URINE RARE /HPF; EPITHELIAL CELLS,URINE FEW /LPF; RBC,URINE 0-5 /HPF (0-5); WBC,URINE (MAN) 0-5 /HPF (0-5)
[2019-07-04 22:09] LABS: ALANINE AMINOTRANSFERASE 18 IU/L (0-55); ALBUMIN 3.8 g/dL (3.5-5.0); ALBUMIN/GLOBULIN RATIO 1.4 (0.8-2.0); ALKALINE PHOSPHATASE 80 IU/L (40-150); ANION GAP 15.7 mmol/L (8-16); BLOOD UREA NITROGEN 16 mg/dL (7-26); BUN/CREATININE RATIO 17 (6-25); CARBON DIOXIDE 24 mmol/L (22-29); CHLORIDE 101 mmol/L (98-107); CREATINE KINASE 325 IU/L (30-200); CREATININE, SERUM 0.95 mg/dL (0.72-1.25); EST GLOMERULAR FILTRATION RATE > 60 ML/MIN (60-); GLUCOSE 131 mg/dL (74-118); POTASSIUM 3.7 mmol/L (3.5-5.1); SODIUM 137 mmol/L (136-145)
--- NOTE | 2019-07-04 22:45 | Diagnostic Imaging Report ---
EXAMINATION: Head CT without contrast. HISTORY:Syncope. COMPARISON:None. TECHNIQUE: Multidetector axial images were obtained from the foramen magnum to the vertex without contrast. The images were reconstructed using brain and bone algorithms. Thin section brain images were reformatted into coronal and sagittal planes. Dose modulation, iterative reconstruction, and/or weight based adjustment of the mA/kV was utilized to reduce the radiation dose to as low as reasonably achievable. Intravenous contrast: None IMAGE QUALITY: Acceptable. FINDINGS: Skull/scalp: No lytic or blastic. lesions. No surgical changes. Parenchyma: No abnormal density. No acute hemorrhage, mass or acute major vascular territorial infarct. Arteries: No density suggestive of thrombosis. Dural sinuses: No abnormal density suggestive of thrombosis. Ventricles: No hydrocephalus or displacement. Extra-axial spaces: No abnormal density. Brain volume: Normal for age. Craniocervical junction: No mass, Chiari malformation, or basilar invagination. Sella: No mass. Paranasal/mastoid sinuses: Imaged portions unremarkable. IMPRESSION: No intracranial abnormality. Signed by: Dr. Judith Fernandez M.D. on 07/04/2019 10:42 PM
--- NOTE | 2019-07-04 22:51 | Diagnostic Imaging Report ---
History: Syncope. Comparison studies: None Technique: Axial images were obtained through the cervical region.. Coronal and sagittal images reconstructed from the axial data. Dose modulation, iterative reconstruction, and/or weight based adjustment of the mA/kV was utilized to reduce the radiation dose to as low as reasonably achievable. Intravenous contrast: None Findings: Fractures: None. Soft tissue injuries: None. Atlantoaxial articulation: Intact. Alignment: Normal lordosis. No scoliosis. 2 mm grade 1 retrolisthesis at level C5-C6 and C6-C7 due to degenerative changes. Cervicomedullary junction: No abnormalities. The foramen magnum is patent. Soft tissues: No abnormalities. Vertebrae: No fractures, infection or neoplasm. Degenerative changes: C2-C3: Mild bilateral foraminal stenosis due to uncovertebral arthrosis. C3-C4: Moderate right and mild left foraminal stenosis due to facet and uncovertebral arthrosis. C4-C5: Mild left foraminal stenosis due to uncovertebral arthrosis. C5-C6: Severe degenerative disc disease. Posterior disc osteophyte complex asymmetric to left results in moderate canal stenosis. Mild right and moderate left foraminal stenosis due to uncovertebral arthrosis. C6-C7: Moderate degenerative disc disease. Posterior disc osteophyte complex results in mild canal stenosis. Mild right and moderate left foraminal stenosis due to uncovertebral arthrosis. Subchondral cyst along the superior endplate of C7. C7-T1: Moderate bilateral foraminal stenosis due to uncovertebral arthrosis. IMPRESSION: 1. No acute cervical spine fracture or dislocation. 2. Ligament, spinal cord and or vascular abnormalities cannot be excluded on the basis of this examination. 3. Cervical spondylosis as detailed above. Signed by: Dr. Judith Fernandez M.D. on 07/04/2019 10:48 PM
--- NOTE | 2019-07-04 23:09 | Diagnostic Imaging Report ---
EXAMINATION: CHEST SINGLE (PORTABLE) INDICATION: ^s/p syncope ^[id number] ^2230 ^Y COMPARISON: None FINDINGS: AP view TUBES and LINES: None. LUNGS: Lungs are well inflated. There is no evidence of pneumonia or pulmonary edema. PLEURA: No significant pleural effusion or pneumothorax. Extreme right costal angle is outside the [id number]. HEART AND MEDIASTINUM: The cardiomediastinal silhouette is unremarkable. BONES AND SOFT TISSUES: No acute osseous lesion. Soft tissues are unremarkable. UPPER ABDOMEN: No free air under the diaphragm. IMPRESSION: No acute thoracic abnormality. Signed by: Dr. Humble Sultana MD on 07/04/2019 11:06 PM
[2019-07-04 23:47] VITALS: BP 116/66
== END 2019-07-05 00:01 | disposition home or self-care (01) ==
LOC: ER 21:11
DX: R55 Syncope and collapse (principal); R42 Dizziness and giddiness; Z85.46 Personal history of malignant neoplasm of prostate
CPT/HCPCS: 36415; 70450; 71045; 72125; 80053; 81001; 82550; 82553; 84484; 85025; 93005; 99284

== ENCOUNTER 2019-08-04 19:32 | Emergency (ER) | payer OTHER ==
[~2019-08-04] VITALS: Ht 185.4 cm; Wt 88.5 kg
--- NOTE | 2019-08-04 21:09 | Diagnostic Imaging Report ---
EXAM: HAND 3+ VIEWS RIGHT DATE: 08/04/2019 8:25 PM INDICATION: ^r/o fx ^[id number] ^[id number] COMPARISON: None FINDINGS: 3 views of the right hand show no displaced fracture or dislocation. There is deformity and degenerative change at the fifth carpometacarpal joint likely related to old injury. There is a small metallic foreign body in the soft tissues adjacent to the second proximal phalanx. IMPRESSION: No acute bony abnormality. Signed by: Dr. Juan M Mendoza M.D. on 08/04/2019 9:05 PM
[2019-08-04 21:32] VITALS: BP 150/89
== END 2019-08-04 21:40 | disposition home or self-care (01) ==
LOC: ER 19:32
DX: S60.221A Contusion of right hand, initial encounter (principal); W18.30XA Fall on same level, unspecified, initial encounter; Y93.01 Activity, walking, marching and hiking; Y92.488 Other paved roadways as the place of occurrence of the external cause; I10 Essential (primary) hypertension; E78.5 Hyperlipidemia, unspecified; F41.9 Anxiety disorder, unspecified; Z85.46 Personal history of malignant neoplasm of prostate
CPT/HCPCS: 99283

== ENCOUNTER 2024-12-30 09:25 | Emergency (ER) | payer BC ==
[~2024-12-30] VITALS: Ht 182.9 cm; Wt 98.9 kg
[2024-12-30 09:30] VITALS: PULSE 90; RESP 16; TEMP 97.7; O2SAT 98
[2024-12-30] MEDS: FLUORESCEIN SOD(OPTH) 1 MG STRP OP ONE (09:40)
[2024-12-30] MEDS ORDERED: PREDNISONE50 MG PO (09:57)
[2024-12-30] MEDS ORDERED: TOBRADEX ST EYE5 ML OD (09:57)
[2024-12-30] MEDS ORDERED: CLEOCIN HCL300 MG PO (09:57)
[2024-12-30] MEDS ORDERED: BENADRYL25 M1 PO (09:57)
[2024-12-30] MEDS ORDERED: BENADRYL ITCH28.3 GM TOP (09:57)
== END 2024-12-30 10:04 | disposition home or self-care (01) ==
LOC: FSED 09:32
DX: H10.9 Unspecified conjunctivitis (principal); H00.011 Hordeolum externum right upper eyelid; H01.001 Unspecified blepharitis right upper eyelid; S50.862A Insect bite (nonvenomous) of left forearm, initial encounter; S50.861A Insect bite (nonvenomous) of right forearm, initial encounter; W57.XXXA Bitten or stung by nonvenomous insect and other nonvenomous arthropods, initial encounter; I10 Essential (primary) hypertension; E78.5 Hyperlipidemia, unspecified; F41.9 Anxiety disorder, unspecified; Z85.46 Personal history of malignant neoplasm of prostate
CPT/HCPCS: 99284